=== PATIENT | male | born 1965 | race Caucasian/White ===

== ENCOUNTER 2016-12-09 06:27 | Day surgery (SDC) | payer OTHER ==
[~2016-12-09] VITALS: Ht 167.6 cm; Wt 57.8 kg
[~2016-12-09 06:27] MED LIST: ADV25050 INH; ASPI-664 PO; CARV12.579 PO; GABA300C16 PO; HYDR-3672 PO; HYDROCODONE; METH750T2 PO; TRAM100T2 PO; VALS1TAB65 PO
[2016-12-09] MEDS ORDERED: NAPR-688 PO (07:47)
[2016-12-09] MEDS ORDERED: FER325 PO (07:47)
[2016-12-09 07:49] VITALS: Ht 167.6 cm; Wt 57.8 kg
[2016-12-09] MEDS ORDERED: MIDAZOLAM 1 MG/ML 2 ML INJ ONE (07:56)
[2016-12-09] MEDS ORDERED: PROPOFOL 20 ML ONE ×2 (07:56→09:07)
[2016-12-09] MEDS ORDERED: LIDOCAINE 2% (SDV) 5 ML INJ ONE (07:56)
[2016-12-09 08:15] VITALS: BP 139/83; PULSE 81; RESP 18
[2016-12-09 09:15] VITALS: BP 137/83; PULSE 88; RESP 12
--- NOTE | 2016-12-09 17:51 | GILP ---
DATE OF PROCEDURE: PROCEDURE PERFORMED: EGD with biopsy and colonoscopy with polypectomy. INDICATION: A 51-year-old male with a history of cirrhosis of liver, COPD was referred for surveill ance for esophageal varicose vein. The patient is also undergoing colonoscopy for colon cancer scre ening. INFORMED CONSENT: Risk of the procedure, related and unrelated complications, anesthetic risks, alt ernatives discussed and informed consent was obtained. DESCRIPTION OF PROCEDURE: The patient was brought to the GI lab, sedated by Dr. Swanson. After approp riate sedation, scope was passed with much ease into esophagus. The patient had a grade II varicose vein, 1 column of veins was identified. There were no stigmata of recent hemorrhage from that. Z line was at 35 cm. Stomach mucosa revealed gastritis, more pronounced in the antrum. Two biopsies obtained to rule out H. pylori infection. Duodenum, first and second part including ampulla, appear ed normal. Retroversion done in the stomach, which revealed a thickened fold in the fundal area. A gain gastric varicose vein cannot be ruled out. The best way to make a diagnosis would be to do EUS . Scope was then straightened out and removed with good patient tolerance. IMPRESSION: 1. Grade II varicose vein, one column identified. 2. Z line at 35 cm. 3. Gastritis. 4. Thickened fold in the fundal area. Gastric varicose vein cannot be ruled out. PLAN: To review the histopathology to confirm the diagnosis of gastric varicose vein. The best thi ng would be to do EUS. COLONOSCOPY REPORT: He was turned around, scope was passed with much ease into rectum, advanced thr ough sigmoid, descending, transverse colon all the way into cecum and finally into terminal ileum. The patient had a moderate degree of diverticulosis in the left side of the colon. He also had magdaleno nosis coli. There was a 2.5 cm elongated polyp identified. Successfully with hot snare technique, polypectomy done. The stalk was well burnt out ____. The polyp was retrieved by snare and then rem winston with good patient tolerance. IMPRESSION: 1. Polyp 2.5 cm in length, successfully removed by hot snare technique. 2. Moderate degree diverticulosis in the left side of the colon. 3. Melanosis coli. 4. Normal terminal ileum up to 2 feet. 5. Clarity was good. Cleanliness was adequate. PLAN: At this point, is to review histopathology of the polyp. Based on the histopathology, we gladys l decide regarding colonoscopy. Dictated By: JAYCE RAMON/KASANDRA Conf#: [id number] DID#: [id number] CC: Darius Nguyen; JAYCE BURNS MD;*EndCC*
== END 2016-12-09 11:01 | disposition home or self-care (01) ==
LOC: GIL 06:27
PROVIDERS: ATTEND Internal Medicine Gastroenterology
DX: K63.5 Polyp of colon (principal); K29.70 Gastritis, unspecified, without bleeding; K57.90 Diverticulosis of intestine, part unspecified, without perforation or abscess without bleeding; K63.89 Other specified diseases of intestine; J44.9 Chronic obstructive pulmonary disease, unspecified; Z86.73 Personal history of transient ischemic attack (TIA), and cerebral infarction without residual deficits; E78.5 Hyperlipidemia, unspecified; I10 Essential (primary) hypertension
CPT/HCPCS: 43239; 45385; 88305; 88312; J2250; Z7610